=== PATIENT | female | born 1995 | race Caucasian/White ===

== ENCOUNTER 2018-05-18 17:57 | Outpatient (CLI) | payer OTHER ==
[2018-05-18 18:20] VITALS: BP 122/74; RESP 16; TEMP 98
[2018-05-18 18:31] VITALS: PULSE 101
--- NOTE | 2018-05-22 10:07 | P.MSEPDOC ---
Presenting Problems - Arrival Data Date of Arrival on Unit: 05/18/18 Time of Arrival on Unit: 17:57 Mode of Transport: Ambulatory - Complaint OB-Reason for Admission/Chief Complaint: Observation/Evaluation Medical History - Information : 1 Para: 0 Term: 0 : 0 Abortions: Spontaneous or Elective: 0 Number of Living Children: 0 - Gestational Age Gestational Age by SRAVAN (wks/days): 31 Weeks and 0 Days Review of Systems - Review of Systems Constitutional: No problems Breast: No problems ENT: No problems Cardiovascular: No problems Respiratory: No problems Gastrointestinal: No problems Genitourinary: No problems Musculoskeletal: No problems Neurological: No problems Skin: No problems Vital Signs - Temperature Temperature: 98.0 F Temperature Source: Oral - Pulse Right Brachial Pulse Rate: 101 Pulse Assessment Method: Automatic Cuff - Respirations Respiratory Rate: 16 Oxygen Delivery Method: Room Air - Blood Pressure Right Arm Blood Pressure: 122/74 Blood Pressure Mean: 90 Blood Pressure Source: Automatic Cuff Medical Screen Scoring (Pre) - Cervical Exam Dilation: 0 cm = 0 Membranes: Intact - Uterine Contractions Frequency: N/A - Maternal Vital Signs Maternal Temperature: N/A Maternal Blood Pressure: N/A Signs of Preeclampsia: N/A Maternal Respirations: N/A - Pain Assessment Pain Location and Character: Abdomen Pain Scale Used: Numeric (1 - 10) Pain Intensity: 7 Pain Management Goal: 5 Pain Description: *Acute Pain Frequency: Intermittent Pain Duration Units: Minutes Pain Behavior: Vocalization - Maternal Trauma Maternal Trauma: N/A - Assessment Baseline FHR: 145 Heart Rate - NICHD Category: Category I (Normal) = 0 Position: N/A Station: N/A - Total Score Total Score (Pre): 0 - Level of Risk Level of Risk: Low (0-5) Physician Notification (Pre) - Physician Notified Physician Notified Date: 05/18/18 Physician Notified Time: 18:24 Physician/Practitioner Notifed:: [place] New Order Received: Yes - Notification Comment Comment: If reactive nst, and no contractions, pt may be d/c home Disposition - Disposition OB Disposition: Triage, Discharge to home Discharge Date: 05/18/18 Discharge Time: 19:01 I agree with the RN Medical Screening Exam: Yes Risk & Benefit of care provided described in d/c instruction: Yes Diagnosis: FALSE LABOR BEFORE 37 COMPLETED WEEKS OF GEST, THIRD TRI
== END 2018-05-18 19:01 | disposition home or self-care (01) ==
LOC: FBPOP 17:57
PROVIDERS: ATTEND Obstetrics & Gynecology
DX: O47.03 False labor before 37 completed weeks of gestation, third trimester (principal); Z3A.31 31 weeks gestation of pregnancy
CPT/HCPCS: 59025; G0463; 99213

== ENCOUNTER 2023-06-09 16:15 | Outpatient (CLI) | payer BC ==
[2023-06-09 16:38] VITALS: BP 102/63; PULSE 105; RESP 18; TEMP 98.2
[2023-06-09 17:00] LABS: Appearance,Urine Cloudy (Clear); Bacteria,Urine Rare /hpf; Bilirubin,Urine Negative (Negative); Blood,Urine Negative (Negative); Calcium Oxalate Crystals,Urine Occasional /hpf; Color,Urine Yellow; Glucose,Urine (UA) Negative (Negative); Ketones,Urine Negative (Negative); Leukocyte Esterase,Urine Moderate (Negative); Mucus,Urine Few /hpf; Nitrite,Urine Negative (Negative); Protein,Urine Trace (Negative); RBC,Urine 6 /hpf (0-5); Specific Gravity,Urine 1.023 (1.001-1.035); Squamous Epithelial Cell,Urine 14 /hpf (0-4); WBC,Urine 3 /hpf (0-5)
--- NOTE | 2023-06-20 09:46 | P.MSEPDOC ---
Presenting Problems - Arrival Data Date of Arrival on Unit: 06/09/23 Time of Arrival on Unit: 16:15 Mode of Transport: Ambulatory - Complaint OB-Reason for Admission/Chief Complaint: Possible Onset of Labor Comment: contractions since 1000 Medical History - Information : 3 Para: 2 Term: 2 : 0 Abortions: Spontaneous or Elective: 0 Number of Living Children: 2 - Gestational Age Gestational Age by SRAVAN (wks/days): 35 Weeks and 1 Days - History Complications: Prior Review of Systems - Review of Systems Constitutional: No problems Breast: No problems ENT: No problems Cardiovascular: No problems Respiratory: No problems Gastrointestinal: No problems Genitourinary: No problems Musculoskeletal: No problems Neurological: No problems Skin: No problems Vital Signs - Temperature Temperature: 98.2 F Temperature Source: Temporal Artery Scan - Pulse Brachial Pulse Rate: 105 Pulse Assessment Method: Automatic Cuff - Respirations Respiratory Rate: 18 Oxygen Delivery Method: Room Air O2 Sat by Pulse Oximetry: 96 - Blood Pressure Right Arm Sitting Blood Pressure: 102/63 Blood Pressure Mean: 76 Blood Pressure Source: Automatic Cuff Medical Screen Scoring - Cervical Exam Dilation (cm): 1.5 Effacement (%): 50 Station: -3 Membranes: Intact - Uterine Contractions Frequency From (mins): 0 Frequency To (mins): 0 Resting: Soft to palpation - Assessment - Baby A Baseline FHR: 130 Heart Rate - NICHD Category: Category I (Normal) NST: Reactive Physician Notification - Physician Notified Physician Notified Date: 06/09/23 Physician Notified Time: 17:15 Physician: Stephany Marie Order Received: Yes (discharge, call office for appt next week early) Maternal Triage Index - Prompt/Priority 3 Prompt Priority 3: Yes Criteria Met for Priority 3: 35.1 weeks planned with contractions Disposition - Disposition OB Disposition: Triage, Discharge to home, Written follow up instructions reviewed Discharge Date: 06/09/23 Discharge Time: 17:31 I agree with the RN Medical Screening Exam: Yes Case reviewed; plan agreed upon as documented in EMR&OBIX.: Yes Diagnosis: rule out labor
== END 2023-06-09 17:30 | disposition home or self-care (01) ==
LOC: FBPOP 16:15
PROVIDERS: ATTEND Obstetrics & Gynecology
DX: O47.03 False labor before 37 completed weeks of gestation, third trimester (principal); O99.333 Smoking (tobacco) complicating pregnancy, third trimester; Z3A.35 35 weeks gestation of pregnancy
CPT/HCPCS: 59025; 81001; 99213

== ENCOUNTER 2023-07-05 19:31 | Inpatient (IN) | payer BC ==
[2023-07-05] MEDS ORDERED: METHYLERGONOVINE 0.2 MG/ML 1 ML AMP IM PRN (19:59)
[2023-07-05] MEDS ORDERED: CARBOPROST TROMETHAMINE 250 MCG/ML 1 ML AMP IM PRN (19:59)
[2023-07-05] MEDS ORDERED: OXYTOCIN 10 UNIT/ML 1 ML VIAL IM PRN (19:59)
[2023-07-05] MEDS ORDERED: CITRIC ACID-SODIUM CITRATE 15 ML CUP PO ONE (19:59)
[2023-07-05] MEDS ORDERED: miSOPROStoL 200 MCG TAB PO PRN (19:59)
[2023-07-05] MEDS ORDERED: TRANEXAMIC 1,000 MG/100ML-NACL 1,000 MG in EMPTY BAG 1 BAG IV PRN (19:59)
[2023-07-05] MEDS ORDERED: OXYTOCIN 30 UNITS/500 ML NS 30 UNIT in SALINE 1 500ML.BAG IV SCH (20:00)
[2023-07-05] MEDS: LACTATED RINGERS 1,000 ML IV SCH ×2 (20:13→22:24)
[2023-07-05 20:15] LABS: Basophils % (A) 0 %; Eosinophils # (A) 0.1 k/uL (0-0.7); Eosinophils % (A) 1 %; HCT 36.7 % (34.0-46.0); HGB 13.2 gm/dL (11.4-16.0); Lymphocytes # (A) 1.7 k/uL (1.0-4.8); Lymphocytes % (A) 17 %; MCHC 36.1 g/dL (31.0-37.0); MCV 97.1 fL (80.0-100.0); Mean Platelet Volume 7.6; Monocytes # (A) 0.5 k/uL (0-1.0); Monocytes % (A) 5 %; Neutrophils # (A) 7.2 k/uL (1.3-7.7); Neutrophils % (A) 75 %; Platelet Count 174 k/uL (150-450); RBC 3.78 m/uL (3.80-5.40); RDW 14.1 % (11.5-15.5); WBC 9.6 k/uL (3.8-10.6)
--- NOTE | 2023-07-05 20:23 | P.HPOB ---
History of Present Illness H&P Date: 07/05/23 Chief Complaint: IUP at 38 1/7 weeks, SROM, h/o section 28-year-old at 38 and one sevenths weeks, estimated due date of based on seven-week ultrasound. Patient has been receiving routine care which has been essentially uncomplicated. Patient does have a history of a primary with her first secondary to nonreassuring heart tones, successful with her second . Patient desires repeat section with bilateral tubal ligation. Patient states she noted loss of fluid around 7 PM, she denies contractions. Patient notes good movement. She denies vaginal bleeding. On bloodwork this patient is a blood type of A-, rubella status immune, RPR is nonreactive, hepatitis B surface antigen negative, HIV is negative, she did have a history of gestational diabetes with her first , initial failure of 1 hour GDS, she did pass her 3 hour gtt. Rhogam was given on 04/26 Review of Systems Constitutional: Denies chills, Denies fatigue, Denies fever Ears, nose, mouth and throat: Denies headache Cardiovascular: Reports leg edema Respiratory: Denies dyspnea Gastrointestinal: Denies constipation, Denies diarrhea, Denies nausea, Denies vomiting Genitourinary: Reports Past Medical History History of Any Multi-Drug Resistant Organisms: None Reported Smoking Status: Never smoker Medications and Allergies Home Medications Medication Instructions Recorded Confirmed Type Vit No.180/Iron/Folic 1 each PO DAILY 05/18/18 07/05/23 History [ Plus Tablet] Allergies Allergy/AdvReac Type Severity Reaction Status Date / Time codeine Allergy Unknown Verified 07/05/23 19:42 Exam Osteopathic Statement: *. No significant issues noted on an osteopathic structural exam other than those noted in the History and Physical/Consult. 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 Assessment and Plan (1) Term Current Visit: Yes Status: Acute Code(s): Z34.90 - ENCNTR FOR SUPRVSN OF NORMAL , UNSP, UNSP TRIMESTER SNOMED Code(s): 27824794 (2) SROM (spontaneous rupture of membranes) Current Visit: Yes Status: Acute Code(s): USA1855 - SNOMED Code(s): 014279246 (3) Family planning Current Visit: Yes Status: Acute Code(s): Z30.09 - ENCOUNTER FOR OTH GENERAL CNSL AND ADVICE ON CONTRACEPTION SNOMED Code(s): 219017169 Plan: 28 yo at 38 1/7 weeks that presents with c/o SROM at 1900, clear in nature. scheduled RCS with TL, will proceed with RCS and TL. Surgery reviewed and questions answered. Patient states she is done with childbearing and desires tubal ligation.
[2023-07-05] MEDS ORDERED: PHENYLEPHRINE-0.9% NACL SYG 1,000 MCG/10 ML SYRINGE ONE (20:41)
[2023-07-05] MEDS ORDERED: OXYTOCIN 10 UNIT/ML 1 ML VIAL ONE (20:41)
[2023-07-05] MEDS ORDERED: NALBUPHINE 10 MG/ML (10 ML MDV) ONE (20:41)
[2023-07-05] MEDS ORDERED: MORPHINE SULFATE (PF) 0.3 MG/0.3 ML SYR ONE (20:41)
[2023-07-05] MEDS ORDERED: ONDANSETRON 4 MG/2 ML VIAL ONE (20:41)
--- NOTE | 2023-07-05 21:29 | P.OP ---
Date of Procedure: 07/05/23 Preoperative Diagnosis: IUP at 30 1/7 weeks, spontaneous rupture of membranes, history of 1, family status complete Postoperative Diagnosis: Same Procedure(s) Performed: Repeat with tubal ligation, Filshie clips Anesthesia: spinal Surgeon: Ning Terrazas Drafter Civil (Cad) #1: Lora Wilson Estimated Blood Loss (ml): 218 IV fluids (ml): 900 Urine output (ml): 250 (Clear yellow) Pathology: none sent Condition: stable Disposition: observation Indications for Procedure: 22 sexual at 38 and one sevenths weeks that presented with complaints of spontaneous rupture of membranes. Patient is a prior history of a with her first for nonreassuring heart tones, should a successful with her second , this was suspected to be large for gestational age, in addition she requested tubal ligation. Patient elected repeat section with tubal ligation. Operative Findings: Normal uterus tubes and ovaries were appreciated, viable male delivered at 2101, weight of 8 lbs. 12 oz., Apgars of 8 and 9 at one and 5 minutes respectively. Description of Procedure: The patient was prepped and draped in the usual fashion after spinal anesthesia was administered by the anesthesia department. A Pfannenstiel incision was made and extended of the abdominal cavity without difficulty. The bladder peritoneum was elevated and incised and reflected distally. A 2 cm incision was made in the transverse plane of the lower uterine segment to enter the uterus at which time clear fluid was noted. The incision was extended in both directions bluntly. The head was encountered within the field and delivered up and through the incision where the nose and mouth were thoroughly suctioned. Remainder of the infant was delivered onto the surgical field where the cord was doubly clamped, cut, and the was passed for resuscitative measures with weight and Apgars as noted above. The placenta was delivered manually, intact, and was grossly normal with a grossly normal three-vessel cord. The uterus was exteriorized and the interior cavity of the uterus swept of any remaining placental and membranous fragments with a laparotomy sponge. The margins of the incision were grasped with Allis clamps and the incision closed in 2 layers. First layer was a running locking layer of 0 Vicryl from margin to margin followed by a second layer of imbricating 0 Vicryl from margin to margin. Any small points of bleeding were then made hemostatic with the Bovie. Once hemostasis was achieved, the posterior cul-de-sac was suctioned with a guard and the uterine and ovarian findings are as noted above. The left fallopian tube was visualized and clamped with a Filshie clip Applicator, this was then repeated on the opposite side. On the right fallopian tube 8 vein was noted running parallel to the fallopian tube therefore a second clip was placed caudad to the first clip. Both clip application sites were visualized hemostatic. The uterus was replaced within the abdominal cavity and the gutters swept of any remaining blood fluid or clot. The incision was again reexamined and hemostasis was noted to be excellent. Any small point of bleeding were made hemostatic with the Bovie. Once hemostasis was achieved the parietal peritoneum was loosely reapproximated. The layer of muscles were examined and made hemostatic with the Bovie. Attention was then turned to the fascia which was closed with a running suture of 0 Vicryl proceeding from the lateral margins to the midpoint. The subcutaneous tissues were irrigated, made hemostatic with the Bovie, and reapproximated with a running stitch of 30 Vicryl. The skin was reapproximated with 4-0 Vicryl. Estimated blood loss for the case was approximately 218 mL. All sponge instrument and needle counts are correct. There were no complications. The patient tolerated the procedure well and proceeded to the recovery room in stable condition. Both mother and are resting comfortably in recovery.
[2023-07-05] MEDS ORDERED: ONDANSETRON 4 MG/2 ML VIAL IVP PRN ×2 (21:31→21:33)
[2023-07-05] MEDS ORDERED: HYDROmorphone 0.5 MG/0.5 ML SYRINGE IVP PRN (21:31)
[2023-07-05] MEDS ORDERED: KETOROLAC 15 MG/ML 1 ML VIAL IVP PRN (21:31)
[2023-07-05] MEDS ORDERED: NALOXONE 0.4 MG/ML 1 ML VIAL IV PRN ×2 (21:31→21:33)
[2023-07-05] MEDS ORDERED: diphenhydrAMINE 50 MG/ML 1 ML VIAL IVP PRN ×3 (21:31→21:33)
[2023-07-05] MEDS ORDERED: diphenhydrAMINE 25 MG CAP PO PRN (21:33)
[2023-07-05] MEDS ORDERED: SIMETHICONE 80 MG CHEWABLE PO PRN (21:33)
[2023-07-05] MEDS ORDERED: METOCLOPRAMIDE 5 MG/ML 2 ML VIAL IVP PRN (21:33)
[2023-07-05] MEDS ORDERED: ZOLPIDEM 5 MG TAB PO PRN (21:33)
[2023-07-05] MEDS ORDERED: LACTATED RINGERS 1,000 ML IV SCH (21:33)
[2023-07-05] MEDS ORDERED: diphenhydrAMINE 50 MG CAP PO PRN (21:33)
[2023-07-05 21:48] VITALS: RESP 16
[2023-07-05] MEDS: ACETAMINOPHEN IV (For NPO) 1,000 MG in EMPTY BAG 1 BAG IVPB SCH (23:45)
[2023-07-06] MEDS ORDERED: miSOPROStoL 200 MCG TAB RECTAL STA (00:37)
[2023-07-06] MEDS: IBUPROFEN IV 800 MG in SODIUM CHLORIDE 0.9% 250 ML IV SCH ×4 (03:15→22:44)
[2023-07-06] MEDS: IBUPROFEN 600 MG TAB PO SCH ×4 (03:40→21:18)
[2023-07-06] MEDS: ACETAMINOPHEN IV (For NPO) 1,000 MG in EMPTY BAG 1 BAG IVPB SCH (05:30)
[2023-07-06] MEDS ORDERED: Rhogam IMMUNE GLOBULIN 1,500 UNIT/1 ML IM ONE (05:32)
[2023-07-06 06:13] LABS: Basophils % (A) 0 %; Eosinophils % (A) 0 %; HCT 34.3 % (34.0-46.0); HGB 11.9 gm/dL (11.4-16.0); Lymphocytes # (A) 1.1 k/uL (1.0-4.8); Lymphocytes % (A) 6 %; MCH 33.5 pg (25.0-35.0); MCHC 34.6 g/dL (31.0-37.0); MCV 96.9 fL (80.0-100.0); Mean Platelet Volume 8.1; Monocytes # (A) 0.4 k/uL (0-1.0); Monocytes % (A) 2 %; Neutrophils # (A) 15.8 k/uL (1.3-7.7); Neutrophils % (A) 91 %; Platelet Count 177 k/uL (150-450); RBC 3.54 m/uL (3.80-5.40); RDW 13.9 % (11.5-15.5); WBC 17.4 k/uL (3.8-10.6)
--- NOTE | 2023-07-06 07:04 | P.PN ---
Progress Note - Text Progress Note Date: 07/06/23 Postoperative day 1 status post section under spinal anesthesia, and i ntrathecal morphine given for postoperative analgesia, patient doing well, there is no anesthesia related complications, Patient had no headache, vital signs stable , Assessment and plan= postop day 1 status post , doing well there is no anesthesia related complication.
[2023-07-06] MEDS: SENNOSIDES-DOCUSATE SODIUM 1 EACH TAB PO SCH ×2 (07:45→21:19)
--- NOTE | 2023-07-06 08:41 | P.PNOBGPC ---
Subjective - Subjective Principal diagnosis: POD 1 RCS with TL Interval history: Patient is doing well this morning. She states her lochia is minimal. Patient did sustain a hemorrhage after returning back to her room from the operating suite. Patient was given Methergine and 1000 make her grams of Cytotec rectally. After Cytotec was given bleeding did slow. Hemoglobin this morning dropped from 13-11. Frey catheter was removed this morning, awaiting spontaneous void. She states her pain is well-controlled. She plans to breast-feed. Patient reports: Reports appetite normal, Reports pain well controlled, Reports ambulating normally [place]: doing well Objective - Vital Signs Latest vital signs: Vital Signs Temp Pulse Resp BP Pulse Ox 07/06/23 08:00 98.4 F 62 16 102/67 96 07/06/23 04:00 98.8 F 94 16 105/69 96 07/06/23 01:00 97.4 F L 69 16 114/77 96 07/06/23 00:01 61 16 113/76 95 07/05/23 23:36 67 16 115/78 95 07/05/23 23:24 70 16 117/76 94 L 07/05/23 23:08 67 16 127/80 98 07/05/23 22:47 59 L 16 105/74 96 07/05/23 22:36 65 16 111/67 98 07/05/23 22:20 67 16 120/74 95 07/05/23 22:05 65 16 123/73 07/05/23 21:48 74 16 107/67 95 07/05/23 21:36 97.1 F L 76 16 110/68 96 07/05/23 20:13 98.0 F 82 16 126/65 98 07/05/23 19:41 98.0 F 82 16 126/65 98 Intake and Output 07/05/23 07/06/23 07/06/23 22:59 06:59 14:59 Output Total 987 2045 Balance -987 -2045 Output: Urine 700 Uretheral (Frey) 700 Estimated Blood Loss 218 Output, Quantitative 769 1345 Blood Loss Other: Voiding Method Indwelling Catheter Indwelling Catheter # Bowel Movements 0 Weight 78.471 kg - Exam Extremities: Present: normal, edema Abdomen: Present: normal appearance, soft Incision: Present: normal, dry, intact Uterus: Present: normal, firm - Labs Labs: Abnormal Lab Results - Last 24 Hours (Table) 07/05/23 07/06/23 Range/Units 20:05 05:38 WBC 17.4 H (3.8-10.6) k/uL RBC 3.78 L 3.54 L (3.80-5.40) m/uL Neutrophils # 15.8 H (1.3-7.7) k/uL Assessment and Plan (1) Term Current Visit: Yes Status: Acute Code(s): Z34.90 - ENCNTR FOR SUPRVSN OF NORMAL , UNSP, UNSP TRIMESTER SNOMED Code(s): 86397060 (2) SROM (spontaneous rupture of membranes) Current Visit: Yes Status: Acute Code(s): XIQ1580 - SNOMED Code(s): 769235154 (3) Family planning Current Visit: Yes Status: Acute Code(s): Z30.09 - ENCOUNTER FOR OT GENERAL CNSL AND ADVICE ON CONTRACEPTION SNOMED Code(s): 896047457 (4) S/P section Current Visit: Yes Status: Acute Code(s): Z98.891 - HISTORY OF UTERINE SCAR FROM PREVIOUS SURGERY SNOMED Code(s): 360583465 Plan: 22 sexual G3 now P3 status post repeat with tubal ligation. Patient is doing well overall. Bleeding did slow after Cytotec was given last evening. Patient did have Frey catheter removed this morning, awaiting spontaneous void. Encourage increased ambulation today, and continue routine postoperative care.
[2023-07-06] MEDS: ACETAMINOPHEN TAB 500 MG TAB PO SCH ×2 (11:50→18:15)
[2023-07-06] MEDS: LACTATED RINGERS 1,000 ML IV SCH ×2 (14:41→22:43)
[2023-07-07] MEDS: ACETAMINOPHEN TAB 500 MG TAB PO SCH ×2 (00:21→08:35)
[2023-07-07] MEDS: IBUPROFEN 600 MG TAB PO SCH ×2 (04:38→10:37)
[2023-07-07] MEDS: IBUPROFEN IV 800 MG in SODIUM CHLORIDE 0.9% 250 ML IV SCH (04:43)
[2023-07-07] MEDS: LACTATED RINGERS 1,000 ML IV SCH (05:35)
[2023-07-07] MEDS: SENNOSIDES-DOCUSATE SODIUM 1 EACH TAB PO SCH (08:35)
[2023-07-07 08:52] VITALS: BP 111/68; PULSE 84; TEMP 98
--- NOTE | 2023-07-07 09:02 | P.DS ---
Providers Date of admission: 07/05/23 19:57 Expected date of discharge: 07/07/23 Attending physician: Tevin Conner Primary care physician: Stated None - Discharge Diagnosis(es) (1) S/P section Current Visit: Yes Status: Acute Hospital Course: The patient is a 28-year-old 3 para 2 scissors or 2 admitted at 38 and one sevenths weeks by good dating parameters. She is admitted to the for repeat low transverse section having had an uncomplicated . She had a history of a primary section her first with a successful following. She has requested to undergo repeat section with intraoperative bilateral tubal occlusion primarily secondary to the concern that the infant is quite large. On labor and delivery, all signs are reassuring with a category 1 heart rate tracing. She was taken to the operating room where she was delivered of a viable 8 lbs. 12 oz. baby boy with Apgars of 8 at 1 minute and 9 at 5 minute's. Her and postoperative course was unremarkable with vital signs remaining stable and her temperature was afebrile throughout. She was deemed stable for discharge on and postoperative day #2 was discharged home to follow-up in the office in 2 weeks for an incision check and 6 weeks routinely. Discharge instructions included calling for any significantly increased bleeding or foul-smelling lochia, significantly increased fever or abdominal pain, perineal complaints, breast complaints, incisional complaints, or anything also concerned her. She was additionally instructed to have nothing in the vagina for at least 6 weeks time to include intercourse. She understood her instructions and agrees to follow up as noted above. Discharge medications included only [id number] analgesic pain medications as well as continued vitamins as she has opted to breast- feed. She declined a prescription for narcotic pain medication. Maternal blood type is A- and cord blood was sent for evaluation for the necessity of RhoGAM prior to discharge. Rubella status is immune. Discharge hemoglobin and hematocrit were 11.9 and 34.3 respectively. Procedures: #1. Repeat low transverse section #2. Intraoperative bilateral tubal occlusion with Filshie clips Patient Condition at Discharge: Stable Plan - Discharge Summary New Discharge Prescriptions: No Action Vit No.180/Iron/Folic [ Plus Tablet] 1 each PO DAILY Discharge Medication List Vit No.180/Iron/Folic [ Plus Tablet] 1 each PO DAILY 05/18/18 [History] Follow up Appointment(s)/Referral(s): Tevin Conner MD [STAFF PHYSICIAN] - 2 Weeks Discharge Disposition: HOME SELF-CARE
== END 2023-07-07 12:50 | disposition home or self-care (01) | DRG 784 ==
LOC: FBPOP 19:31 → 4FBP 19:57
PROVIDERS: ADMIT Obstetrics & Gynecology Obstetrics; ATTEND Obstetrics & Gynecology
PROC: 4A0HXCZ Measurement of Products of Conception, Cardiac Rate, External Approach (ICD-10-PCS; principal; 2023-07-05 21:46)
PROC: 3E0DXGC Introduction of Other Therapeutic Substance into Mouth and Pharynx, External Approach (ICD-10-PCS; principal; 2023-07-05 21:46)
PROC: 0UL70CZ Occlusion of Bilateral Fallopian Tubes with Extraluminal Device, Open Approach (ICD-10-PCS; principal; 2023-07-05 21:46)
PROC: 10D00Z1 Extraction of Products of Conception, Low, Open Approach (ICD-10-PCS; principal; 2023-07-05 21:46)
DX: O34.211 Maternal care for low transverse scar from previous cesarean delivery (principal); O72.2 Delayed and secondary postpartum hemorrhage; Z37.0 Single live birth; O42.913 Preterm premature rupture of membranes, unspecified as to length of time between rupture and onset of labor, third trimester; Z3A.38 38 weeks gestation of pregnancy; Z86.32 Personal history of gestational diabetes; Z88.5 Allergy status to narcotic agent; Z30.2 Encounter for sterilization
CPT/HCPCS: 59025; 84112; 85025; 85461; 86850; 86900; 86901; 99213